=== PATIENT | male | born 1985 | race African-American/Black ===

== ENCOUNTER 2016-09-17 09:51 | Emergency (ER) | payer SELFPAY ==
[~2016-09-17] VITALS: Ht 172.7 cm; Wt 65.0 kg
[2016-09-17 09:53] VITALS: BP 134/88
== END 2016-09-17 10:55 | disposition home or self-care (01) ==
LOC: ED 10:49
DX: S66.517A Strain of intrinsic muscle, fascia and tendon of left little finger at wrist and hand level, initial encounter (principal); F17.200 Nicotine dependence, unspecified, uncomplicated; Z88.8 Allergy status to other drugs, medicaments and biological substances; X50.0XXA Overexertion from strenuous movement or load, initial encounter; Y93.89 Activity, other specified; Y92.89 Other specified places as the place of occurrence of the external cause; Y99.8 Other external cause status
CPT/HCPCS: 29130